=== PATIENT | male | born 1955 | race Caucasian/White ===

== ENCOUNTER → 2016-11-23 | Outpatient (CLI) | payer BC ==
[~2016-11-23] MED LIST: Aspirin E.C. PO; Colchicine,Colcrys PO; Flomax PO; HYDROCORTISONE VALERATE 0.2% TP; PriLOSEC PO; Vicodin,Norco 5/325 PO; Zyloprim PO
== END | disposition home or self-care (01) ==
LOC: CDC 15:26
DX: M17.12 Unilateral primary osteoarthritis, left knee (principal); S83.222D Peripheral tear of medial meniscus, current injury, left knee, subsequent encounter; R94.31 Abnormal electrocardiogram [ECG] [EKG]
CPT/HCPCS: 93000